=== PATIENT | female | born 1990 | race Caucasian/White ===

== ENCOUNTER 2023-02-16 04:47 | Emergency (ER) | payer BC ==
[~2023-02-16] VITALS: Ht 154.9 cm; Wt 70.3 kg
[2023-02-16 04:59] VITALS: BP_SYST 151; PULSE 90; RESP 16; TEMP 97.9; O2SAT 98
[2023-02-16] MEDS ORDERED: KETOROLAC TROMETHAMINE 60 MG/2 ML VIAL IM ONE (05:30)
[2023-02-16 05:56] VITALS: BP_SYST 145; PULSE 87; RESP 16; TEMP 97.9; O2SAT 100
== END 2023-02-16 05:58 | disposition home or self-care (01) ==
LOC: SED 04:47
DX: S60.221A Contusion of right hand, initial encounter (principal); Z88.0 Allergy status to penicillin; Z79.899 Other long term (current) drug therapy; W22.8XXA Striking against or struck by other objects, initial encounter; Y93.89 Activity, other specified; Y92.89 Other specified places as the place of occurrence of the external cause; Y99.8 Other external cause status
CPT/HCPCS: 99283; 73130; 96372; J1885

== ENCOUNTER 2023-08-29 00:54 | Emergency (ER) | payer BC ==
[~2023-08-29] VITALS: Ht 154.9 cm; Wt 72.6 kg
[2023-08-29 01:09] VITALS: BP_SYST 131; PULSE 88; RESP 20; TEMP 97.3; O2SAT 100
[2023-08-29 06:19] VITALS: BP_SYST 125; PULSE 85; RESP 22; TEMP 97.3; O2SAT 98
== END 2023-08-29 06:18 | disposition home or self-care (01) ==
LOC: SED 00:54
DX: E04.9 Nontoxic goiter, unspecified (principal); Z88.0 Allergy status to penicillin
CPT/HCPCS: 70490; 76536; 99284